=== PATIENT | male | born 1970 | race Caucasian/White ===

== ENCOUNTER → 2021-02-22 15:19 | Outpatient (CLI) | payer OTHER, SELFPAY ==
--- NOTE | 2021-02-22 15:24 | DI.RAD.S_ITS ---
PROCEDURE: XR CHEST 2V INDICATIONS: COMPLETE HEART BLOCK TECHNIQUE: 2 views of the chest were acquired. COMPARISON: None. FINDINGS: Surgical changes and devices: Left cardiac device. Lungs and pleura: No consolidation, pleural effusions or pneumothorax. Mediastinum: Mediastinal contours are normal. Heart size is normal. Bones and chest wall: No suspicious bony abnormalities. Soft tissues appear unremarkable. IMPRESSION: No acute cardiopulmonary abnormality. Dictated by: Kyle Villavicencio M.D. on 02/22/2021 at 15:35 Approved by: Kyle Villavicencio M.D. on 02/22/2021 at 15:35
== END ==
PROVIDERS: PCP Family Medicine; Referring Provider Physician Assistant; Visit Provider Physician Assistant
DX: I44.2 Atrioventricular block, complete (principal)
CPT/HCPCS: 71046

== ENCOUNTER → 2023-07-03 10:49 | Outpatient (CLI) | payer OTHER, SELFPAY ==
--- NOTE | 2023-07-03 10:51 | DI.CT.S_ITS ---
PROCEDURE: CT LUNG LOW DOSE SCREENING INDICATIONS: LUNG CANCER SCREENING TECHNIQUE: Noncontrast 2.0-2.5 mm thick sections acquired from the pulmonary apices to the posterior costophrenic angles. 7 mm thick axial MIP, and 5 mm coronal and sagittal reformats were then acquired. For radiation dose reduction, the following was used: automated exposure control, adjustment of mA and/or kV according to patient size. COMPARISON: None. FINDINGS: Image quality: Diagnostic. Lower Neck: No enlarged lymph nodes. Thyroid: No thyroid nodules which require sonographic follow up, per consensus guidelines. Axillae: No enlarged lymph nodes. Chest Wall: Unremarkable. Bones: Unremarkable. Lungs and Pleura: No pneumothorax or pleural effusions. Pulmonary nodules are as follows--all described on series 3: 1. 3 mm subpleural pulmonary nodule, right upper lobe, image 126. Heart: Heart size is normal. No pericardial effusion. Pacemaker. Thoracic Vessels: The aorta and pulmonary arteries demonstrate normal size. Mediastinum and Shira: No enlarged lymph nodes. Esophagus: No wall thickening. No hiatal hernia. Upper Abdomen: Visualized upper abdomen solid organs and bowel loops appear normal. IMPRESSION: Solitary tiny probably benign pulmonary nodule, right upper lobe. LUNG-RADS to; continued annual screening, if eligible. Clinically Significant Non-pulmonary Findings: None. Dictated by: Richard Floyd M.D. on 07/03/2023 at 20:12 Approved by: Richard Floyd M.D. on 07/03/2023 at 20:16
== END ==
LOC: CT 10:50
PROVIDERS: PCP Internal Medicine; Referring Provider Internal Medicine; Visit Provider Internal Medicine
DX: Z12.2 Encounter for screening for malignant neoplasm of respiratory organs (principal)
CPT/HCPCS: 71271